=== PATIENT | female | born 1995 | race Caucasian/White ===

== ENCOUNTER 2017-03-17 18:12 | Emergency (ER) | payer OTHER ==
--- NOTE | 2017-03-17 20:29 | ER Document Report ---
ED General - General Chief Complaint: Leg Swelling Stated Complaint: LEFT KNEE PAIN Time Seen by Provider: 03/17/17 20:07 Notes: Patient is a 22-year-old female with a past medical history of a prior meniscal repair on the left knee, a history of recurrent swelling of the left lower extremity, presents with 1 week of pain and swelling to the left lower extremity at the level of the knee. Patient describes it as a severe, constant , throbbing pain. Moving the leg worsens the pain. She has tried Tylenol without any significant improvement of the pain. She states that this is happened recurrently over the past 1 year and she has required her bursa to be drained once in the past. She has not seen her primary doctor regarding today' s concerns. She denies any fever or constitutional symptoms. No weakness or numbness. TRAVEL OUTSIDE OF THE [place] IN LAST 30 DAYS: No - Related Data Allergies/Adverse Reactions: Bleach (Sodium Hypochlorite) Allergy (Severe, Verified 01/07/16 11:17) itch,swell NSAIDS (Non-Steroidal Anti-Inflamma Adverse Reaction (Unknown, Verified 11:17) not to take,ulcers Past Medical History - General Information source: Patient - Social History Smoking Status: Never Smoker Frequency of alcohol use: None Drug Abuse: None Lives with: Parents Family History: Reviewed & Not Pertinent - Past Medical History Cardiac Medical History: Reports: Hx Hypertension - recent high Denies: Hx Coronary Artery Disease, Hx Heart Attack Pulmonary Medical History: Denies: Hx Asthma, Hx Bronchitis, Hx COPD, Hx Pneumonia Neurological Medical History: Denies: Hx Cerebrovascular Accident, Hx Seizures Musculoskeltal Medical History: Denies Hx Arthritis Past Surgical History: Reports: Hx Abdominal Surgery - gastric bypass, Hx Gastric Bypass Surgery - Immunizations Hx Diphtheria, Pertussis, Tetanus Vaccination: Yes Review of Systems - Review of Systems Notes: Constitutional: Negative for fever. HENT: Negative for sore throat. Eyes: Negative for visual changes. Cardiovascular: Negative for chest pain. Respiratory: Negative for shortness of breath. Gastrointestinal: Negative for abdominal pain, vomiting or diarrhea. Genitourinary: Negative for dysuria. Musculoskeletal: Positive for left leg pain and swelling Skin: Negative for rash. Neurological: Negative for headaches, weakness or numbness. 10 point ROS negative except as marked above and in HPI. Physical Exam - Vital signs Vitals: Temp Pulse Resp BP Pulse Ox 98.1 F 86 20 133/80 H 100 03/17/17 18:29 03/17/17 18:29 03/17/17 18:29 03/17/17 18:29 03/17/17 18:29 Interpretation: Normal Notes: PHYSICAL EXAMINATION: GENERAL: Well-appearing, well-nourished and in no acute distress. HEAD: Atraumatic, normocephalic. EYES: Pupils equal round and reactive to light, extraocular movements intact, sclera anicteric, conjunctiva are normal. ENT: nares patent, oropharynx clear without exudates. Moist mucous membranes. NECK: Normal range of motion, supple without lymphadenopathy LUNGS: Breath sounds clear to auscultation bilaterally and equal. No wheezes rales or rhonchi. HEART: Regular rate and rhythm without murmurs ABDOMEN: Soft, nontender, normoactive bowel sounds. No guarding, no rebound. No masses appreciated. EXTREMITIES: 1+ nonpitting edema to the left lower extremity, none present on the right. Significant pain on palpation of the left calf. There appears to be swelling to the popliteal fossa as well as the left calf NEUROLOGICAL: No focal neurological deficits. Moves all extremities spontaneously and on command. PSYCH: Normal mood, normal affect. SKIN: Warm, Dry, normal turgor, no rashes or lesions noted. Course - Re-evaluation Re-evalutation: 03/17/17 20:28 Patient presents with left lower extremity swelling that has been intermittent for the past 1 year likely related to recurrent bursitis that is rupturing although I do need to exclude an acute DVT as the etiology of her unilateral leg swelling today. Will proceed with a PVL of the left lower extremity to exclude and if normal plan for discharge home. I do not clinically suspect an acute cellulitis, acute lymphedema, or a deep space abscess. 03/17/17 22:13 Venous ultrasound does not show any evidence of acute DVT but does show a large bursitis. This is clinically consistent with patient's history. Will recommend crutches, Germain wrap, and outpatient follow-up with orthopedic surgery - Vital Signs Vital signs: Temp Pulse Resp BP Pulse Ox 98.3 F 90 18 136/87 H 99 03/17/17 22:41 03/17/17 22:41 03/17/17 22:41 03/17/17 22:41 03/17/17 22:41 Discharge - Discharge Clinical Impression: Left leg pain, Swelling of left lower extremity Condition: Good Disposition: HOME, SELF-CARE Additional Instructions: Your ultrasound does not show a clot in your leg. There is a large fluid containing sac running from your knee behind your lower leg which is the cause of the pain and swelling. You should keep off this leg using crutches and can keep the area Germain wrapped. You should follow-up with orthopedic surgery at your earliest ability for additional evaluation of this ongoing swelling. Prescriptions: Tramadol HCl 50 mg PO Q6H PRN #12 tablet PRN Reason: Severe Pain Forms: Return to Work Referrals: EUN LOPEZ MD [ACTIVE STAFF] - Follow up as needed
[2017-03-17] MEDS ORDERED: TRAMADOL HCL 50 MG TABLET PO ONE (22:16)
[2017-03-17] MEDS ORDERED: ACETAMINOPHEN 325 MG TABLET PO ONE (22:16)
[2017-03-17 22:42] VITALS: BP 136/87
--- NOTE | 2017-03-18 08:37 | XCELERA REPORT ---
[address] [address] Lower Extremity Venous Evaluation Name: LIOR NASH Age: 22 yrs Gender: Female : 1995 Patient Status: Emergency Patient Location: ER Study Date: 03/17/2017 09:22 PM Procedure: Color flow and duplex imaging of the veins of the left lower extremity as well as the right Common Femoral vein. Reason For Study: eval left dvt Ordering Physician: SHAWN HERNANDEZ Performed By: Alesia Riddle Right Sided Venous Evaluation The right common femoral vein is fully compressible. Spontaneous and phasic flow is present in the right common femoral vein. Left Sided Venous Evaluation Non vascular complex, heterogenous mass in calf muscle noted. Normal vessel filling wall to wall, compression and augmentation as well as Colour flow down to the infrageniculate veins. Interpretation Summary No duplex evidence of DVT or obstruction in the left lower extremity nor in the right Common Femoral vein. Complex mass in the left calf muscles may be responsible for symptoms. : SHAWN HERNANDEZ > Paul Wren
== END 2017-03-17 22:42 | disposition home or self-care (01) ==
LOC: ER 18:12
DX: M79.89 Other specified soft tissue disorders (principal); M25.562 Pain in left knee; M79.605 Pain in left leg; Z98.890 Other specified postprocedural states
CPT/HCPCS: 93971; 99283

== ENCOUNTER 2017-04-05 02:14 | Emergency (ER) | payer OTHER ==
[2017-04-05] MEDS ORDERED: POLYMYXIN B SULFATE/TMP OPH SOLN (10 ML/ER DISP) OD PRN (03:40)
--- NOTE | 2017-04-05 03:43 | ER Document Report ---
ED General - General Chief Complaint: Drainage from Eye Stated Complaint: EYE PAIN Time Seen by Provider: 04/05/17 03:24 Notes: Patient is a 22-year-old female presents with complaint of redness and irritation to the right eye. Patient says that symptoms started about a day ago. She has had some nasal congestion. No matting. No foreign body to the eye. She does not do any type of employment her job where foreign bodies typically fly into her eye. She does not wear contacts. She only wears glasses. No other complaints at this time. TRAVEL OUTSIDE OF THE [place] IN LAST 30 DAYS: No - Related Data Allergies/Adverse Reactions: Bleach (Sodium Hypochlorite) Allergy (Severe, Verified 01/07/16 11:17) itch,swell NSAIDS (Non-Steroidal Anti-Inflamma Adverse Reaction (Unknown, Verified 11:17) not to take,ulcers Past Medical History - Social History Smoking Status: Unknown if Ever Smoked Frequency of alcohol use: None Drug Abuse: None Family History: Reviewed & Not Pertinent Patient has suicidal ideation: No Patient has homicidal ideation: No - Past Medical History Cardiac Medical History: Reports: Hx Hypertension - recent high Denies: Hx Coronary Artery Disease, Hx Heart Attack Pulmonary Medical History: Denies: Hx Asthma, Hx Bronchitis, Hx COPD, Hx Pneumonia Neurological Medical History: Denies: Hx Cerebrovascular Accident, Hx Seizures Renal/ Medical History: Denies: Hx Peritoneal Dialysis Musculoskeltal Medical History: Denies Hx Arthritis Past Surgical History: Reports: Hx Abdominal Surgery - gastric bypass, Hx Gastric Bypass Surgery - Immunizations Hx Diphtheria, Pertussis, Tetanus Vaccination: Yes Review of Systems - Review of Systems Notes: My Normal Review Basic REVIEW OF SYSTEMS: CONSTITUTIONAL : Denies fever, chills, or sweats. Denies recent illness. EENT: Redness and irritation to right eye. ALL OTHER SYSTEMS REVIEWED AND NEGATIVE. Physical Exam - Vital signs Vitals: Temp Pulse Resp BP Pulse Ox 97.6 F 90 16 140/91 H 100 04/05/17 02:21 04/05/17 02:21 04/05/17 02:21 04/05/17 02:21 04/05/17 02:21 - Notes Notes: General Appearance: Well nourished, alert, cooperative, no acute distress, no obvious discomfort. Vitals: reviewed, See vital signs table. Head: no swelling or tenderness to the head Eyes: PERRL, EOMI, patient does have some erythema to the conjunctive of the right eye. No significant swelling of the eye. No swelling of the eyelid. Minimal drainage. Left eye is completely normal-appearing. Patient has good extraocular motion of the right eye without any pain or difficulty. Pupils are normal-appearing. Mouth: No decreasd moisture Neuro: speech clear, oriented x 3, normal affect, responds appropriately to questions. Course - Re-evaluation Re-evalutation: 04/05/17 06:14 Patient's clinical presentation is consistent with that of conjunctivitis. I will place her on eyedrops. I informed her that some eyedrops can to actually cause more irritation than improvement. I informed her that if she starts having worsening redness or irritation, swelling, or she feels that she is worsening she should stop the eyedrops and return to the ER for reevaluation. I informed her that if she is not noticing improvement after 3 days and she should return to the ER for reevaluation. Patient agrees with plan will be discharged home. Dictation of this chart was performed using voice recognition software; therefore, there may be some unintended grammatical errors. - Vital Signs Vital signs: Temp Pulse Resp BP Pulse Ox 97.6 F 90 16 130/76 H 100 04/05/17 02:21 04/05/17 02:21 04/05/17 02:21 04/05/17 03:49 04/05/17 02:21 Discharge - Discharge Clinical Impression: Conjunctivitis Qualifiers: Conjunctivitis type: unspecified Laterality: right Qualified Code(s): H10.9 - Unspecified conjunctivitis Condition: Good Disposition: HOME, SELF-CARE Additional Instructions: Conjunctivitis You have an infection in your eye, commonly known as "pink eye." Conjunctivitis causes redness, mild discomfort, itching, and mattering on the eyelids. It is very contagious, so you must be careful to wash your hands after touching your face so you don't pass the infection on to others. Conjunctivitis is caused by both viruses and bacteria. It usually responds quickly to treatment with antibiotic drops. These should be placed in the eye as prescribed (usually every three to four hours while you're awake). If you wear contact lenses, don't put them in your eyes until the infection is cleared and you are no longer using the drops (unless your doctor advises you otherwise). Should you develop increasing eye pain, severe swelling, decreased vision, or fail to improve as expected, please return for re-examination. Please use the drops as 1 drop in your eye every 3 hours for 7 days. Please return to the ER for reevaluation if you are having worsening redness in your eye or if you are not having any improvement after 3 days fo using the drops.
[2017-04-05 03:49] VITALS: BP 130/76
== END 2017-04-05 03:49 | disposition home or self-care (01) ==
LOC: ER 02:14
DX: H10.9 Unspecified conjunctivitis (principal); H57.11 Ocular pain, right eye; R09.81 Nasal congestion
CPT/HCPCS: 99282; J3490